=== PATIENT | male | born 1980 | race Caucasian/White ===

== ENCOUNTER 2016-12-15 14:29 | Emergency (ER) | payer MEDICARE ==
[~2016-12-15 14:29] MED LIST: ADVIL200 M2 PO; ERYTHROMYCIN O3.5 GM OP; FLEXERIL10 MG PO; NO MEDICATIONS; ORUDIS75 M1 PO; VOLTAREN50 MG PO; ZITHROMAX1 G/PKT PO
[2016-12-15 14:48] LABS: INFLUENZA A NEG (NEG); INFLUENZA B NEG (NEG)
[2017-06-30] MEDS ORDERED: HYDROCODON-ACE1 EAC7 PO (11:45)
== END 2016-12-15 15:36 | disposition home or self-care (01) ==
LOC: SED 14:29
PROVIDERS: Nurse Practitioner
DX: J06.9 Acute upper respiratory infection, unspecified (principal); J02.9 Acute pharyngitis, unspecified
CPT/HCPCS: 87651; 87804; 87880; 99283

== ENCOUNTER 2017-04-13 17:40 | Emergency (ER) | payer MEDICARE ==
[2017-06-30] MEDS ORDERED: HYDROCODON-ACE1 EAC7 PO (11:45)
== END 2017-04-13 18:50 | disposition home or self-care (01) ==
LOC: SED 17:40
DX: K08.89 Other specified disorders of teeth and supporting structures (principal); R03.0 Elevated blood-pressure reading, without diagnosis of hypertension
CPT/HCPCS: 99283

== ENCOUNTER 2017-05-31 12:20 | Emergency (ER) | payer MEDICARE ==
[2017-05-31 13:12] LABS: URINE SOURCE CLEAN CATCH
[2017-05-31 13:13] LABS: BASOPHIL% 0.2 % (0-2.5); EOSINOPHIL% 0.3 % (0.0-7.0); HEMATOCRIT 41.8 % (38.0-50.0); HEMOGLOBIN 14.4 gm/dL (13.0-16.0); LYMPHOCYTE# 0.8 X10e3 (1.0-3.5); MEAN CELL VOLUME 83.1 FL (83-96); MEAN CORPUSCULAR HEMOGLOBIN 28.5 PG (28-34); MEAN CORPUSCULAR HGB CONC 34.4 g/dL (30-36); MEAN PLATELET VOLUME 7.8 FL (6.5-11.5); MONOCYTE# 0.9 X10e3 (0-1.0); MONOCYTE% 5.9 % (3.0-12.0); NEUTROPHIL% 88.6 % (40-75); PLATELET COUNT 152 X10e3 (140-420); RED BLOOD COUNT 5.03 X10e (3.90-5.60); RED CELL DISTRIBUTION WIDTH 13.4 % (11.0-15.5); WHITE BLOOD COUNT 15.8 X10e3 (4.0-10.5)
[2017-05-31 13:15] LABS: URINE APPEARANCE CLEAR; URINE BILIRUBIN NEG (NEG); URINE BLOOD NEG (NEG); URINE COLOR YELLOW; URINE GLUCOSE NEG (NORM); URINE KETONE NEG (NEG); URINE LEUKOCYTE ESTERASE NEG (NEG); URINE NITRATE NEG (NEG); URINE PH 5.5 (5-8); URINE PROTEIN NEG (NEG); URINE SPECIFIC GRAVITY 1.025 (1.003-1.035); URINE UROBILINOGEN 0.2 MG/DL (NORM)
[2017-05-31 13:18] LABS: DIFF IND NO
[2017-05-31 13:24] LABS: AMPHETAMINE NEG (NEG); BARBITURATES NEG (NEG); BENZODIAZEPINES NEG (NEG); COCAINE NEG (NEG); MARIJUANA NEG (NEG); OPIATES NEG (NEG); TRICYCLIC ANTIDEPRESSANTS NEG (NEG); U METHADONE NEG (NEG)
[2017-05-31 13:28] LABS: MICRO INDICATED? NO
[2017-05-31 14:07] LABS: ALCOHOL BLOOD <5 mg/dL (0); BLOOD UREA NITROGEN 11 mg/dL (9-23); BUN/CREATININE RATIO 13.75; CALCIUM SERUM 8.5 mg/dL (8.4-10.2); CARBON DIOXIDE 25 mmol/L (22-31); CHLORIDE 103 mmol/L (100-111); CREATININE SERUM 0.8 mg/dL (0.6-1.4); GLOM FILT RATE Estimated 115.8 mL/min (>60); GLUCOSE FASTING 116 mg/dL (70-110); POTASSIUM 3.8 mmol/L (3.5-5.1); SODIUM 135 mmol/L (135-145)
[2017-06-30] MEDS ORDERED: HYDROCODON-ACE1 EAC7 PO (11:45)
== END 2017-05-31 14:26 | disposition home or self-care (01) ==
LOC: SED 12:20
PROVIDERS: Student in an Organized Health Care Education/Training Program
DX: R11.0 Nausea (principal)
CPT/HCPCS: 36415; 80048; 80307; 81003; 83735; 85025; 96361; 96374; 96375; 99283; C9113; G0480; J2405

== ENCOUNTER 2017-06-27 22:01 | Emergency (ER) | payer MEDICARE ==
[~2017-06-27] VITALS: Ht 162.6 cm; Wt 90.7 kg
[2017-06-27 23:34] LABS: URINE SOURCE CLEAN CATCH
[2017-06-27 23:36] LABS: URINE APPEARANCE CLEAR; URINE BILIRUBIN NEG (NEG); URINE BLOOD NEG (NEG); URINE COLOR YELLOW; URINE GLUCOSE NEG (NORM); URINE KETONE NEG (NEG); URINE LEUKOCYTE ESTERASE NEG (NEG); URINE NITRATE NEG (NEG); URINE PROTEIN NEG (NEG); URINE SPECIFIC GRAVITY <=1.005 (1.003-1.035); URINE UROBILINOGEN 0.2 MG/DL (NORM)
[2017-06-27 23:37] LABS: MICRO INDICATED? NO
[2017-06-30] MEDS ORDERED: HYDROCODON-ACE1 EAC7 PO (11:45)
== END 2017-06-28 00:06 | disposition home or self-care (01) ==
LOC: SED 22:01
PROVIDERS: Emergency Medicine
DX: K40.90 Unilateral inguinal hernia, without obstruction or gangrene, not specified as recurrent (principal)
CPT/HCPCS: 81003; 99284